=== PATIENT | female | born 1960 | race American Indian/Alaskan Native ===

== ENCOUNTER 2017-11-30 13:33 | Inpatient (IN) | payer OTHER ==
[2017-11-30] MEDS ORDERED: ZOFRAN ODT ONE (14:05)
[2017-11-30] MEDS ORDERED: ZOFRAN ODT PO ONE (14:07)
--- NOTE | 2017-11-30 14:07 | Emergency Department Report ---
ED Headache HPI - General Chief Complaint: Headache Stated Complaint: BLURRED VISION Time Seen by Provider: 11/30/17 13:59 Source: patient Exam Limitations: no limitations - History of Present Illness Initial Comments: 57 year old female presents to the Hospital complaining awaken up at 8 AM with a global sharp and dull headache. Pain is constant. Patient went to walk to the bathroom and felt like her gait was unsteady and she was falling to the right side. When she returned to the bed she started to have some to have some blurry vision nausea, and developed nausea and vomiting after drinking water. She denies history of migraine, neck pain, recent head injury. Pt with history of a " mild stroke" not taking any aspirin. Allergies/Adverse Reactions: Allergies No Known Allergies Allergy (Verified 11/30/17 13:37) ED Review of Systems ROS: Stated complaint: BLURRED VISION Other details as noted in HPI Comment: All other systems reviewed and negative ED Past Medical Hx - Past Medical History Hx CVA: Yes ("slight stroke") - Surgical History Past Surgical History?: No - Social History Smoking Status: Never Smoker Substance Use Type: None ED Physical Exam - General Limitations: No Limitations - Other Other exam information: General: No limitations, patient is alert in no acute distress Head exam: Atraumatic, normocephalic Eyes exam: Normal appearance ENT: Moist mucous membrane, normal oropharynx Neck exam: Normal inspection, full range of motion, no meningismus nontender Respiratory exam: Clear to auscultation bilateral, no wheezes, rales, crackles Cardiovascular: Normal rate and rhythm, normal heart sounds Abdomen: Soft, nondistended, and nontender, with normal bowel sounds, no rebound, or guarding Extremity: Full range of motion normal inspection no deformity Back: Normal Inspection, full range of motion, no tenderness Neurologic: Alert, oriented x3, cranial nerves intact, see NIH stroke scale. Psychiatric: normal affect, normal mood Skin: Warm, dry, intact ED Course Vital Signs 11/30/17 13:37 Temperature 97.4 F L Pulse Rate 85 Respiratory 16 Rate Blood Pressure 121/85 O2 Sat by Pulse 96 Oximetry ED Medical Decision Making - Lab Data Result diagrams: 11/30/17 14:21 11/30/17 14:21 Lab Results 11/30/17 11/30/17 11/30/17 Range/Units 14:21 14:21 14:21 WBC 6.0 (4.5-11.0) K/mm3 RBC 4.02 (3.65-5.03) M/mm3 Hgb 12.8 (10.1-14.3) gm/dl Hct 38.5 (30.3-42.9) % MCV 96 (79-97) fl MCH 32 (28-32) pg MCHC 33 (30-34) % RDW 13.5 (13.2-15.2) % Plt Count 354 (140-440) K/mm3 Lymph % (Auto) 23.7 (13.4-35.0) % [place] % (Auto) 4.2 (0.0-7.3) % Eos % (Auto) 0.4 (0.0-4.3) % Baso % (Auto) 0.4 (0.0-1.8) % Lymph # 1.4 (1.2-5.4) K/mm3 [place] # 0.3 (0.0-0.8) K/mm3 Eos # 0.0 (0.0-0.4) K/mm3 Baso # 0.0 (0.0-0.1) K/mm3 Seg Neutrophils % 71.3 H (40.0-70.0) % Seg Neutrophils # 4.3 (1.8-7.7) K/mm3 PT 12.6 (12.2-14.9) Sec. INR 0.90 (0.87-1.13) APTT 29.0 (24.2-36.6) Sec. Thrombin Time (15.1-19.6) Sec. Sodium 139 (137-145) mmol/L Potassium 3.7 (3.6-5.0) mmol/L Chloride 101.1 (98-107) mmol/L Carbon Dioxide 26 (22-30) mmol/L Anion Gap 16 mmol/L BUN 9 (7-17) mg/dL Creatinine 0.6 L (0.7-1.2) mg/dL Estimated GFR > 60 ml/min BUN/Creatinine Ratio 15 % Glucose 99 (65-100) mg/dL Calcium 8.9 (8.4-10.2) mg/dL Troponin T < 0.010 (0.00-0.029) ng/mL Urine Color (Yellow) Urine Turbidity (Clear) Urine pH (5.0-7.0) Ur Specific [place] (1.003-1.030) Urine Protein (Negative) mg/dL Urine Glucose (UA) (Negative) mg/dL Urine Ketones (Negative) mg/dL Urine Blood (Negative) Urine Nitrite (Negative) Urine Bilirubin (Negative) Urine Urobilinogen (<2.0) mg/dL Ur Leukocyte Esterase (Negative) Urine WBC (Auto) (0.0-6.0) /HPF Urine RBC (Auto) (0.0-6.0) /HPF U Epithel Cells (Auto) (0-13.0) /HPF Urine Bacteria (Auto) (Negative) /HPF Urine Mucus /HPF Urine Opiates Screen Urine Methadone Screen Ur Barbiturates Screen Ur Phencyclidine Scrn Ur Amphetamines Screen U Benzodiazepines Scrn Urine Cocaine Screen U Marijuana (THC) Screen Drugs of Abuse Note 11/30/17 11/30/17 11/30/17 Range/Units 14:21 14:28 14:28 WBC (4.5-11.0) K/mm3 RBC (3.65-5.03) M/mm3 Hgb (10.1-14.3) gm/dl Hct (30.3-42.9) % MCV (79-97) fl MCH (28-32) pg MCHC (30-34) % RDW (13.2-15.2) % Plt Count (140-440) K/mm3 Lymph % (Auto) (13.4-35.0) % [place] % (Auto) (0.0-7.3) % Eos % (Auto) (0.0-4.3) % Baso % (Auto) (0.0-1.8) % Lymph # (1.2-5.4) K/mm3 [place] # (0.0-0.8) K/mm3 Eos # (0.0-0.4) K/mm3 Baso # (0.0-0.1) K/mm3 Seg Neutrophils % (40.0-70.0) % Seg Neutrophils # (1.8-7.7) K/mm3 PT (12.2-14.9) Sec. INR (0.87-1.13) APTT (24.2-36.6) Sec. Thrombin Time 17.1 (15.1-19.6) Sec. Sodium (137-145) mmol/L Potassium (3.6-5.0) mmol/L Chloride (98-107) mmol/L Carbon Dioxide (22-30) mmol/L Anion Gap mmol/L BUN (7-17) mg/dL Creatinine (0.7-1.2) mg/dL Estimated GFR ml/min BUN/Creatinine Ratio % Glucose (65-100) mg/dL Calcium (8.4-10.2) mg/dL Troponin T (0.00-0.029) ng/mL Urine Color Yellow (Yellow) Urine Turbidity Clear (Clear) Urine pH 6.0 (5.0-7.0) Ur Specific [place] 1.019 (1.003-1.030) Urine Protein <15 mg/dl (Negative) mg/dL Urine Glucose (UA) Neg (Negative) mg/dL Urine Ketones 20 (Negative) mg/dL Urine Blood Sm (Negative) Urine Nitrite Neg (Negative) Urine Bilirubin Neg (Negative) Urine Urobilinogen < 2.0 (<2.0) mg/dL Ur Leukocyte Esterase Sm (Negative) Urine WBC (Auto) 5.0 (0.0-6.0) /HPF Urine RBC (Auto) 15.0 (0.0-6.0) /HPF U Epithel Cells (Auto) 5.0 (0-13.0) /HPF Urine Bacteria (Auto) 2+ (Negative) /HPF Urine Mucus 1+ /HPF Urine Opiates Screen Presumptive negative Urine Methadone Screen Presumptive negative Ur Barbiturates Screen Presumptive negative Ur Phencyclidine Scrn Presumptive negative Ur Amphetamines Screen Presumptive negative U Benzodiazepines Scrn Presumptive negative Urine Cocaine Screen Presumptive negative U Marijuana (THC) Screen Presumptive negative Drugs of Abuse Note Disclamer - EKG Data -: EKG Interpreted by Nm EKG shows normal: sinus rhythm, axis (qrs 44), QRS complexes (qrsd 84), ST-T waves (no stemi/t wave inv) Rate: normal - EKG Data When compared to previous EKG there are: no significant change (11/27/15) - Radiology Data Radiology results: report reviewed CT HEAD WITHOUT CONTRAST: HISTORY: Neurological deficit. TECHNIQUE: Sequential 2.5mm CT images. COMPARISON: none. FINDINGS: Cerebral Parenchyma: Within normal limits. Cerebellum: Within normal limits. Brainstem: Within normal limits. Ventricles: Normal. Sella: Normal. Extra-axial spaces: Normal. Basal Cisterns: Normal. Intracranial Hemorrhage: None. Midline Shift: None. Calvarium: Normal. Sinuses: Normal. Mastoid Air Cells: Normal. Visualized Orbits: Normal. IMPRESSION: Cranial CT scan within normal limits. - Medical Decision Making Patient presented with headache with left-sided numbness and complained of dizziness and unsteady gait. Patient has decreased sensation and a headache. Patient may have a complex migraine but denies history of headaches or migraine. CT head unremarkable. She'll be admitted to the hospital for further workup and evaluation. Aspirin given in the ED - Differential Diagnosis complex migraine, cva, vertigo Critical Care Time: No Critical care attestation.: If time is entered above; I have spent that time in minutes in the direct care of this critically ill patient, excluding procedure time. ED Disposition Clinical Impression: Headache, Left sided numbness Disposition: DC-01 TO HOME OR SELFCARE Is pt being admited?: Yes Condition: Stable Time of Disposition: 15:18 (Dr Silverio/hosp) - Assessment Assessment Interval: Baseline - Level of Consciousness 1a. Level of Consciousness: alert - LOC Questions 1b. LOC Questions: answers correctly - LOC Command 1c. LOC Commands: performs tasks correctly - Best Gaze 2. Best Gaze: normal - Visual 3. Visual: no visual loss - Facial Palsy 4. Facial Palsy: normal symmetrical movement - Motor Arm 5b. Motor Arm Right: no drift 5a. Motor Arm Left: no drift - Motor Leg 6a. Motor Leg Left: no drift 6b. Motor Leg Right: no drift - Limb Ataxia 7. Limb Ataxia: absent - Sensory 8. Sensory: mild/moderate sensory loss (left arm and left leg) - Best Language 9. Best Language: no aphasia - Dysarthria 10. Dysarthria: normal - Extinction and Inattention 11. Extinction/Inattention: no abnormality - Scoring Total Score: 1 Stroke Severity: Minor Stroke
--- NOTE | 2017-11-30 14:25 | Cat Scan Report ---
CT HEAD WITHOUT CONTRAST: HISTORY: Neurological deficit. TECHNIQUE: Sequential 2.5mm CT images. COMPARISON: none. FINDINGS: Cerebral Parenchyma: Within normal limits. Cerebellum: Within normal limits. Brainstem: Within normal limits. Ventricles: Normal. Sella: Normal. Extra-axial spaces: Normal. Basal Cisterns: Normal. Intracranial Hemorrhage: None. Midline Shift: None. Calvarium: Normal. Sinuses: Normal. Mastoid Air Cells: Normal. Visualized Orbits: Normal. IMPRESSION: Cranial CT scan within normal limits. These findings were discussed with Dr. busch in the emergency department at at 1418 hrs.
[2017-11-30 14:32] LABS: Basophils % (Auto) 0.4 % (0.0-1.8); Eosinophils % (Auto) 0.4 % (0.0-4.3); Hematocrit 38.5 % (30.3-42.9); Hemoglobin 12.8 gm/dl (10.1-14.3); Lymphocytes # (Auto) 1.4 K/mm3 (1.2-5.4); Lymphocytes % (Auto) 23.7 % (13.4-35.0); Mean Corpuscular HGB Conc 33 % (30-34); Mean Corpuscular Hemoglobin 32 pg (28-32); Mean Corpuscular Volume 96 fl (79-97); Monocytes # (Auto) 0.3 K/mm3 (0.0-0.8); Monocytes % (Auto) 4.2 % (0.0-7.3); Platelet Count 354 K/mm3 (140-440); Red Blood Count 4.02 M/mm3 (3.65-5.03); Red Cell Distribution Width 13.5 % (13.2-15.2)
[2017-11-30] MEDS ORDERED: TORADOL IV ONE (14:38)
[2017-11-30] MEDS ORDERED: REGLAN IV ONE (14:38)
[2017-11-30] MEDS ORDERED: BENADRYL IV ONE (14:38)
[2017-11-30] MEDS ORDERED: ASPIRIN PO ONE (14:39)
[2017-11-30 14:43] LABS: INR 0.9 (0.87-1.13)
[2017-11-30 14:46] LABS: BUN/Creatinine Ratio 15; Blood Urea Nitrogen 9 mg/dL (7-17); Calcium 8.9 mg/dL (8.4-10.2); Hemolysis Index 0
[2017-11-30 14:59] LABS: Bacteria,Urine 2+ /HPF (Negative); Bilirubin,Urine NEG (Negative); Blood,Urine SM (Negative); Color,Urine Yellow (Yellow); Mucus,Urine 1+ /HPF; Protein,Urine <15 mg/dL mg/dL (Negative); Urobilinogen,Urine < 2.0 mg/dL (<2.0)
[2017-11-30 15:04] LABS: Amphetamine Screen,Urine PRESUMPTIVE NEGATIVE; Benzodiazepines Screen,Urine PRESUMPTIVE NEGATIVE; Cannabinoid Screen,Urine PRESUMPTIVE NEGATIVE; Cocaine Screen,Urine PRESUMPTIVE NEGATIVE; Methadone Screen,Urine PRESUMPTIVE NEGATIVE; Opiate Screen,Urine PRESUMPTIVE NEGATIVE
[2017-11-30] MEDS ORDERED: ZOFRAN IV PRN (18:05)
[2017-11-30] MEDS ORDERED: PERCOCET 5/325 PO PRN (18:05)
[2017-11-30] MEDS ORDERED: TYLENOL PO PRN (18:05)
[2017-11-30] MEDS ORDERED: MORPHINE IV PRN (18:05)
[2017-11-30] MEDS ORDERED: AMBIEN PO PRN (18:05)
[2017-11-30] MEDS ORDERED: SODIUM CHLORIDE FLUSH SYRINGE 10 ML IV PRN ×2 (18:05→18:23)
--- NOTE | 2017-11-30 18:05 | History and Physical Report ---
History of Present Illness Date of examination: 11/30/17 Date of admission: 11/30/2017 Chief complaint: Chief complaint: Left-sided numbness since 8 AM History of present illness: History of Present Illness 57-year-old black female with history of cerebrovascular accident in the past which has resolved completely comes in for left-sided numbness from the face to the left upper extremity and left lower extremity. When she woke up at 8 AM she felt the left-sided numbness. The symptoms of an constant. No resolution R increase in the symptoms. Patient does not have any nasal regurgitation of fluids or facial weakness. Patient able to walk. No seizures. No recent hour. Past Medical History Hx CVA: Yes ("slight stroke") Surgical History Past Surgical History?: No Social History Smoking Status: Never Smoker Substance Use Type: None Family history Htn Review of Systems ROS: Stated complaint: BLURRED VISION Other details as noted in HPI Comment: All other systems reviewed and negative Medications and Allergies Allergies Allergy/AdvReac Type Severity Reaction Status Date / Time No Known Allergies Allergy Verified 11/30/17 13:37 Exam - Physical Exam Narrative exam: Lying in bed comfortably - Constitutional Vitals: Temp Pulse Resp BP Pulse Ox 97.4 F L 71 16 93/51 97 11/30/17 13:37 11/30/17 16:29 11/30/17 16:29 11/30/17 16:29 11/30/17 16:29 General appearance: Present: no acute distress, well-nourished - EENT Eyes: Present: PERRL ENT: hearing intact, clear oral mucosa - Neck Neck: Present: supple, normal ROM - Respiratory Respiratory effort: normal Respiratory: bilateral: CTA - Cardiovascular Heart rate: 78 Rhythm: regular Heart Sounds: Present: S1 & S2. Absent: rub, click - Extremities Extremities: no ischemia, pulses intact, pulses symmetrical, No edema Peripheral Pulses: within normal limits - Abdominal General gastrointestinal: Present: soft, non-tender, non-distended, normal bowel sounds Female genitourinary: Present: normal - Rectal Rectal Exam: deferred - Integumentary Integumentary: Present: clear, warm, dry - Musculoskeletal Musculoskeletal: strength equal bilaterally, other (normal COMPUTER PROJECT MANAGER exam: Per ED physician patient had decreased sensation in the left upper and left lower extremity) - Psychiatric Psychiatric: appropriate mood/affect, intact judgment & insight - Neurologic Neurologic: CNII-XII intact, moves all extremities - Allied Health Allied health notes reviewed: nursing Results - Labs CBC & Chem 7: 11/30/17 14:21 11/30/17 14:21 Labs: Laboratory Last Values WBC 6.0 K/mm3 (4.5-11.0) 11/30/17 14:21 RBC 4.02 M/mm3 (3.65-5.03) 11/30/17 14:21 Hgb 12.8 gm/dl (10.1-14.3) 11/30/17 14:21 Hct 38.5 % (30.3-42.9) 11/30/17 14:21 MCV 96 fl (79-97) 11/30/17 14:21 MCH 32 pg (28-32) 11/30/17 14:21 MCHC 33 % (30-34) 11/30/17 14:21 RDW 13.5 % (13.2-15.2) 11/30/17 14:21 Plt Count 354 K/mm3 (140-440) 11/30/17 14:21 Lymph % (Auto) 23.7 % (13.4-35.0) 11/30/17 14:21 [place] % (Auto) 4.2 % (0.0-7.3) 11/30/17 14:21 Eos % (Auto) 0.4 % (0.0-4.3) 11/30/17 14:21 Baso % (Auto) 0.4 % (0.0-1.8) 11/30/17 14:21 Lymph # 1.4 K/mm3 (1.2-5.4) 11/30/17 14:21 [place] # 0.3 K/mm3 (0.0-0.8) 11/30/17 14:21 Eos # 0.0 K/mm3 (0.0-0.4) 11/30/17 14:21 Baso # 0.0 K/mm3 (0.0-0.1) 11/30/17 14:21 Seg Neutrophils % 71.3 % (40.0-70.0) H 11/30/17 14:21 Seg Neutrophils # 4.3 K/mm3 (1.8-7.7) 11/30/17 14:21 PT 12.6 Sec. (12.2-14.9) 11/30/17 14:21 INR 0.90 (0.87-1.13) 11/30/17 14:21 APTT 29.0 Sec. (24.2-36.6) 11/30/17 14:21 Thrombin Time 17.1 Sec. (15.1-19.6) 11/30/17 14:21 Sodium 139 mmol/L (137-145) 11/30/17 14:21 Potassium 3.7 mmol/L (3.6-5.0) 11/30/17 14:21 Chloride 101.1 mmol/L (98-107) 11/30/17 14:21 Carbon Dioxide 26 mmol/L (22-30) 11/30/17 14:21 Anion Gap 16 mmol/L 11/30/17 14:21 BUN 9 mg/dL (7-17) 11/30/17 14:21 Creatinine 0.6 mg/dL (0.7-1.2) L 11/30/17 14:21 Estimated GFR > 60 ml/min 11/30/17 14:21 BUN/Creatinine Ratio 15 % 11/30/17 14:21 Glucose 99 mg/dL (65-100) 11/30/17 14:21 Calcium 8.9 mg/dL (8.4-10.2) 11/30/17 14:21 Troponin T < 0.010 ng/mL (0.00-0.029) 11/30/17 14:21 Urine Color Yellow (Yellow) 11/30/17 14:28 Urine Turbidity Clear (Clear) 11/30/17 14:28 Urine pH 6.0 (5.0-7.0) 11/30/17 14:28 Ur Specific [place] 1.019 (1.003-1.030) 11/30/17 14:28 Urine Protein <15 mg/dl mg/dL (Negative) 11/30/17 14:28 Urine Glucose (UA) Neg mg/dL (Negative) 11/30/17 14:28 Urine Ketones 20 mg/dL (Negative) 11/30/17 14:28 Urine Blood Sm (Negative) 11/30/17 14:28 Urine Nitrite Neg (Negative) 11/30/17 14:28 Urine Bilirubin Neg (Negative) 11/30/17 14:28 Urine Urobilinogen < 2.0 mg/dL (<2.0) 11/30/17 14:28 Ur Leukocyte Esterase Sm (Negative) 11/30/17 14:28 Urine WBC (Auto) 5.0 /HPF (0.0-6.0) 11/30/17 14:28 Urine RBC (Auto) 15.0 /HPF (0.0-6.0) 11/30/17 14:28 U Epithel Cells (Auto) 5.0 /HPF (0-13.0) 11/30/17 14:28 Urine Bacteria (Auto) 2+ /HPF (Negative) 11/30/17 14:28 Urine Mucus 1+ /HPF 11/30/17 14:28 Urine Opiates Screen Presumptive negative 11/30/17 14:28 Urine Methadone Screen Presumptive negative 11/30/17 14:28 Ur Barbiturates Screen Presumptive negative 11/30/17 14:28 Ur Phencyclidine Scrn Presumptive negative 11/30/17 14:28 Ur Amphetamines Screen Presumptive negative 11/30/17 14:28 U Benzodiazepines Scrn Presumptive negative 11/30/17 14:28 Urine Cocaine Screen Presumptive negative 11/30/17 14:28 U Marijuana (THC) Screen Presumptive negative 11/30/17 14:28 Drugs of Abuse Note Disclamer 11/30/17 14:28 Short CBC 11/30/17 Range/Units 14:21 WBC 6.0 (4.5-11.0) K/mm3 Hgb 12.8 (10.1-14.3) gm/dl Hct 38.5 (30.3-42.9) % Plt Count 354 (140-440) K/mm3 BMP 11/30/17 14:21 Sodium 139 Potassium 3.7 Chloride 101.1 Carbon Dioxide 26 BUN 9 Creatinine 0.6 L Glucose 99 Calcium 8.9 Cardiac Enzymes 11/30/17 Range/Units 14:21 Troponin T < 0.010 (0.00-0.029) ng/mL Urine 11/30/17 Range/Units 14:28 Urine Color Yellow (Yellow) Urine pH 6.0 (5.0-7.0) Ur Specific [place] 1.019 (1.003-1.030) Urine Protein <15 mg/dl (Negative) mg/dL Urine Glucose (UA) Neg (Negative) mg/dL - Imaging and Cardiology EKG: report reviewed (normal sinus rhythm) CT Scan - head: report reviewed (no acute findings) Assessment and Plan Advance Directives: Yes (full code) VTE prophylaxis?: Chemical Plan of care discussed with patient/family: Yes - Patient Problems (1) TIA (transient ischemic attack) Current Visit: Yes Status: Acute Qualifiers: Transient cerebral ischemia type: carotid artery syndrome (hemispheric) Qualified Code(s): G45.1 - Carotid artery syndrome (hemispheric) Plan to address problem: Patient is left-sided numbness TIA versus cerebrovascular accident Will get MRI/MRA echo and carotid duplex scan. Neurology consult Aspirin 81 mg once a day Plavix 75 mg once a day (2) DVT prophylaxis Current Visit: Yes Status: Acute Plan to address problem: On Lovenox 40 subcutaneous daily
[2017-11-30] MEDS ORDERED: NACL 0.9% 1000 ML 1,000 ML IV SCH (19:00)
[2017-11-30] MEDS ORDERED: PLAVIX PO ONE (19:25)
[2017-11-30] MEDS ORDERED: LOVENOX SUB-Q SCH (22:00)
[2017-12-01] MEDS: LOVENOX SUB-Q SCH ×2 (00:29→13:13)
[2017-12-01] MEDS: SODIUM CHLORIDE FLUSH SYRINGE 10 ML IV SCH ×2 (00:30→10:18)
[2017-12-01] MEDS ORDERED: PLAVIX PO NR (01:00)
[2017-12-01] MEDS ORDERED: FIORICET PO NR (04:43)
[2017-12-01 05:43] LABS: Basophils % (Auto) 0.2 % (0.0-1.8); Eosinophils # (Auto) 0.1 K/mm3 (0.0-0.4); Eosinophils % (Auto) 1.6 % (0.0-4.3); Hematocrit 33.9 % (30.3-42.9); Hemoglobin 11.4 gm/dl (10.1-14.3); Lymphocytes # (Auto) 2.8 K/mm3 (1.2-5.4); Lymphocytes % (Auto) 47.8 % (13.4-35.0); Mean Corpuscular HGB Conc 34 % (30-34); Mean Corpuscular Hemoglobin 33 pg (28-32); Mean Corpuscular Volume 97 fl (79-97); Monocytes # (Auto) 0.3 K/mm3 (0.0-0.8); Monocytes % (Auto) 5.2 % (0.0-7.3); Platelet Count 304 K/mm3 (140-440); Red Cell Distribution Width 13.7 % (13.2-15.2)
[2017-12-01 06:08] LABS: Albumin 3.4 g/dL (3.9-5); BUN/Creatinine Ratio 16; Blood Urea Nitrogen 11 mg/dL (7-17); Calcium 8.4 mg/dL (8.4-10.2); Chol/HDL Ratio 2.87 %; HDL Cholesterol 40 mg/dL (40-59); Hemolysis Index 155; LDL Cholesterol,Direct 64 mg/dL (50-130)
[2017-12-01 06:30] LABS: Alanine Aminotransferase 11 units/L (7-56)
[2017-12-01] MEDS ORDERED: LEVAQUIN PO SCH (11:00)
--- NOTE | 2017-12-01 13:18 | Discharge Summary ---
Providers - Providers Date of Admission: 11/30/17 18:05 Date of discharge: 12/01/17 Attending physician: ELMER PEREZ 11/30/17 18:05 Consult to Physician [CONS] Routine Comment: Consulting Provider: THANH GIBBONS Physician Instructions: Reason For Exam: TIA 11/30/17 18:23 Occupational Therapy Evaluate and Treat [CONS] Routine Comment: Reason For Exam: Neuro deficits Physical Therapy Evaluation and Treat [CONS] Routine Comment: Reason For Exam: Neuro deficits Primary care physician: LIVING SUPERVISOR Hospitalization Condition: Stable Hospital course: Ms. Leon is a 57 yo woman with a history of TIAs who presents with dizziness with head movements, seeing spots. She was admitted for TIA r/o CVA. CT head unremarkable. -Dizziness, most likely Migraine related, give NSAID x 1, home with narcotics -H/o TIA, not this time. -UTI MRI, MRA negative for strokes Carotid doppler unremarkable for significant stenosis. Disposition: DC-01 TO HOME OR SELFCARE Time spent for discharge: 31 min Core Measure Documentation - Palliative Care Palliative Care/ Comfort Measures: Not Applicable - Core Measures Any of the following diagnoses?: none - VTE Discharge Requirements Deep Vein Thrombosis/Pulmonary Embolism Present on Admission: No Has pt received <5 days of overlap therapy or INR<2.0: No Anticoagulant overlap therapy prescribed at discharge: No Contraindication No Overlap Therapy order at DC: Not Indicated Exam - Physical Exam Narrative exam: GEN: WDWN, NAD, Awake, Alert, Orientated x 3 HEENT: NCAT, EOMI, PERRL, OP Clear NECK: supple, no adenopathy, no thyromegaly, no JVD CVS/HEART: RRR, normal S1S2, pulses present bilaterally CHEST/LUNGS: CTA B, Symmetrical chest expansion, good air entry bilaterally GI/Abdomen: soft, NTND, good bowel sounds, no guarding or rebound /Bladder: no suprapubic tenderness, no CVA or paraspinal tenderness EXT/Skin: no c/c/e, no obvious rash MSK: FROM x 4 Neuro: CN 2-12 grossly intact, no focal deficits, no nystagmus Psych: calm - Constitutional Vitals: Temp Pulse Resp BP Pulse Ox 98.2 F 54 L 18 118/75 96 12/01/17 06:14 12/01/17 06:14 12/01/17 06:14 12/01/17 06:14 12/01/17 06:14 Plan Activity: no driving until cleared by PCP, other (no strenous activities) Diet: regular Additional Instructions: if you do not have a PCP then call [facility] at [phone] and ask for the first available appointment. Also, asked you PCP to obtain urine culture results from Here Follow up with: PRIMARY MD ROMERO [Primary Care Provider] - 3-5 Days THANH GIBBONS MD [Staff Physician] - 7 Days Prescriptions: AtorvaSTATin [Lipitor] 20 mg PO QHS #30 tab Aspirin [Aspirin EC] 81 mg PO DAILY #30 tablet. HYDROcodone/APAP 5-325 [[place] 5/325] 1 each PO Q4HR PRN #10 tablet PRN Reason: Headache Levofloxacin [Levaquin TAB] 500 mg PO Q24HR #6 tablet Ondansetron [Zofran Odt] 4 mg PO Q4H PRN 3 Days tab.rapdis PRN Reason: Nausea Pantoprazole [Protonix TAB] 20 mg PO DAILY 3 Days tablet.
[2017-12-01 13:22] VITALS: BP 131/77
--- NOTE | 2017-12-01 13:41 | Magnetic Resonance Report ---
FINAL REPORT EXAM: MR BRAIN WO CON HISTORY: stroke TECHNIQUE: Multiplanar multisequence brain MR imaging without IV contrast. PRIORS: None. FINDINGS: The included air filled sinuses contain no acute fluid level. Small scattered foci of FLAIR and T2 hyperintensity in the cerebral white matter, while nonspecific, are present and usually attributed to chronic ischemic gliosis. It can occur secondary to the normal aging process, hypertension, vasculitis, migraine related changes, or arterial sclerotic vascular disease. The differential includes demyelination in the appropriate clinical setting. Sulci and ventricles are age-appropriate. The brain is without mass, mass effect, hemorrhage, or acute infarct. There are no areas of brain restricted diffusion to suggest an acute ischemic infarct. There is no midline shift or brain edema. IMPRESSION: No acute CVA or brain mass Small scattered foci of white matter FLAIR hyperintensities usually reflect chronic ischemic gliosis. See differential above
--- NOTE | 2017-12-01 13:46 | Magnetic Resonance Report ---
FINAL REPORT EXAM: MR MRA HEAD WO CON HISTORY: stroke TECHNIQUE: Multiplanar multisequence brain arterial vascular MRA imaging 3-D image postprocessing. PRIORS: MRI brain 12/01/2017 FINDINGS: Internal carotid arteries: Normal left side. Slight signal irregularity and minimal narrowing in the distal right ICA may be artifact or reflect slight atherosclerotic change. Less than 50 % stenosis. Anterior cerebral arteries: Normal. Middle cerebral arteries: Normal. Vertebral arteries: Normal. Basilar artery: Normal. Posterior cerebral arteries: No definite abnormality. Developmental variation with persistent circulation of left CLEANER. Occlusion: None. Vascular malformations: None. Aneurysm: None. IMPRESSION: No evidence of aneurysm or occlusion Slight irregularity in the distal right ICA may be artifact or reflect slight atherosclerotic change. Less than 50 % stenosis.
[2017-12-01] MEDS ORDERED: NORCO 10/325 PO PRN (13:59)
--- NOTE | 2017-12-01 14:52 | Consultation ---
History of Present Illness Consult date: 12/01/17 History of present illness: patient is seen and it is OK to be discharged home the MRI shows only minimal changes a/w migraine ad the MRA is normal suspect this is migraine and not stroke or TIA will follow up in the office may go home Thanks Medications and Allergies Allergies Allergy/AdvReac Type Severity Reaction Status Date / Time codeine Allergy Angioedema Verified 12/01/17 04:23 Home Medications Medication Instructions Recorded Confirmed Last Taken Type Acetaminophen [Acetaminophen TAB] 325 mg PO Q4H PRN #30 tablet 12/01/17 Unknown Rx Aspirin [Aspirin EC] 81 mg PO DAILY #30 tablet. 12/01/17 Unknown Rx AtorvaSTATin [Lipitor] 20 mg PO QHS #30 tab 12/01/17 Unknown Rx HYDROcodone/APAP 5-325 [[place] 1 each PO Q4HR PRN #10 tablet 12/01/17 Unknown Rx 5/325] Levofloxacin [Levaquin TAB] 500 mg PO Q24HR #6 tablet 12/01/17 Unknown Rx Lisinopril 12/01/17 Unknown History Ondansetron [Zofran Odt] 4 mg PO Q4H PRN 3 Days tab.rapdis 12/01/17 Unknown Rx Pantoprazole [Protonix TAB] 20 mg PO DAILY 3 Days tablet. 12/01/17 Unknown Rx Active Meds: Active Medications Acetaminophen (Tylenol) 650 mg PO Q4H PRN PRN Reason: Pain MILD(1-3)/Fever >100.5/MCKEON Last Admin: 12/01/17 14:22 Dose: 650 mg Acetaminophen/Hydrocodone Bitart ([place] 10/325) 1 each PO Q4H PRN PRN Reason: Pain, Moderate (4-6) Atorvastatin Calcium (Lipitor) 40 mg PO QHS CAMERON Last Admin: 12/01/17 00:29 Dose: 40 mg Sodium Chloride (Nacl 0.9% 1000 Ml) 1,000 mls @ 75 mls/hr IV DIRECT CAMERON Last Admin: 12/01/17 05:00 Dose: 75 mls/hr Levofloxacin (Levaquin) 500 mg PO Q24HR CAMERON Last Admin: 12/01/17 13:16 Dose: 500 mg Naproxen (Naprosyn) 500 mg PO ONCE ONE Stop: 12/01/17 15:01 Ondansetron HCl (Zofran) 4 mg IV Q8H PRN PRN Reason: Nausea And Vomiting Sodium Chloride (Sodium Chloride Flush Syringe 10 Ml) 10 ml IV BID CAMERON Last Admin: 12/01/17 10:18 Dose: 10 ml Sodium Chloride (Sodium Chloride Flush Syringe 10 Ml) 10 ml IV PRN PRN PRN Reason: LINE FLUSH Zolpidem Tartrate (Ambien) 5 mg PO QHS PRN PRN Reason: Insomnia Physical Examination - Vital Signs Vital Signs: Vital Signs Temp Pulse Resp BP Pulse Ox 97.4 F L 85 16 121/85 96 11/30/17 13:37 11/30/17 13:37 11/30/17 13:37 11/30/17 13:37 11/30/17 13:37 - Assessment Assessment Interval: Baseline - Level of Consciousness 1a. Level of Consciousness: alert - LOC Questions 1b. LOC Questions: answers correctly - LOC Command 1c. LOC Commands: performs tasks correctly - Best Gaze 2. Best Gaze: normal - Visual 3. Visual: no visual loss - Facial Palsy 4. Facial Palsy: normal symmetrical movement - Motor Arm 5b. Motor Arm Right: no drift - Motor Leg 6a. Motor Leg Left: no drift - Limb Ataxia 7. Limb Ataxia: absent - Sensory 8. Sensory: mild/moderate sensory loss (left arm and left leg) - Best Language 9. Best Language: no aphasia - Dysarthria 10. Dysarthria: normal - Extinction and Inattention 11. Extinction/Inattention: no abnormality Results - Laboratory Findings CBC and BMP: 12/01/17 04:32 12/01/17 04:32 Abnormal Lab Findings: Abnormal Labs 11/30/17 11/30/17 12/01/17 14:21 14:21 04:32 RBC 3.50 L MCH 33 H Lymph % (Auto) 47.8 H Seg Neutrophils % 71.3 H Creatinine 0.6 L Total Protein Albumin 12/01/17 04:32 RBC MCH Lymph % (Auto) Seg Neutrophils % Creatinine Total Protein 6.1 L Albumin 3.4 L
[2017-12-01] MEDS ORDERED: NAPROSYN PO ONE (15:00)
--- NOTE | 2017-12-02 12:51 | Consultation ---
HISTORY OF PRESENT ILLNESS: This patient initially admitted to the Emergency Room of [facility], had been admitted because of new onset of severe headaches, dizziness, loss of balance; on speaking with Dr. Rojas, the patient's condition has subsequently stabilized with subsequent to her admission. She has had neuro imaging studies including MRI/MRA. I have reviewed over her magnetic resonance arterial scan MRA, which is negative. I have reviewed over her MRI scan of the brain, which shows a very minimal white matter changes present posteriorly with very minimal lacunar changes within the white matter, referred to as the microvascular white matter changes, which are typical of migraine and also age related. I have reviewed over her labs which consists of having a normal white count of 6000 and hematocrit of 38.5. The patient's creatinine is 0.6, potassium is 3.7, but has been corrected since admission to 4.6. Her albumin is 3.4. Since admission, the patient's condition has improved. She does not have severe headache. She has no nausea and vomiting, but slight dizziness when she attempted to stand. Initial presenting symptoms were that of dizziness and incoordination. PHYSICAL EXAMINATION: At this point, shows: VITAL SIGNS: Blood pressure to be 120/70, pulse rate is 80, respirations 18, pulse rate is 60, and temperature is 99.1. NEUROLOGIC: Cranial nerves 2-12 are intact. Full ocular movements. Symmetrical face. Movement is present. Hearing is intact. Speech is clear. Affect appropriate. Neck is supple. Mac Developer strength equal. Motor tone is symmetrical. No reflex abnormalities present. Full ocular movements present. No tremors or asterixis. IMPRESSION: Prolonged migraine with vertigo, nausea, headache. I agree with Dr. Rojas, the patient may be discharged home at this point. We would recommend Topamax, magnesium. I will follow up in the office. Thank you very much. JOB# [id number] AKOSUA/NTS
== END 2017-12-01 18:05 | disposition home or self-care (01) | DRG 103 ==
LOC: ED 13:33 → 3A 18:05
PROVIDERS: ADMIT Internal Medicine; ATTEND Internal Medicine
DX: G43.909 Migraine, unspecified, not intractable, without status migrainosus (principal); N39.0 Urinary tract infection, site not specified; Z82.49 Family history of ischemic heart disease and other diseases of the circulatory system; Z88.6 Allergy status to analgesic agent
CPT/HCPCS: 36415; 70450; 70544; 70551; 80048; 80053; 80061; 80307; 81001; 83036; 84484; 85025; 85610; 85670; 85730; 87086; 93005; 93010; 93880; 96374; 96375; A9270-GY; J1200; J1650; J2765; J7030; Q0162

== ENCOUNTER 2017-12-03 15:32 | Emergency (ER) | payer SELFPAY ==
[2017-12-03 16:26] VITALS: BP 113/66
--- NOTE | 2017-12-03 16:50 | Emergency Department Report ---
ED General Adult HPI - General Chief complaint: Headache Stated complaint: HIGH BLOOD PRESSURE Time Seen by Provider: 12/03/17 16:37 Source: patient Mode of arrival: Ambulatory Limitations: No Limitations - History of Present Illness Initial comments: Patient is a 57-year-old Female who was admitted several days ago for headache with numbness. Patient had MRI to rule out CVA. Patient states that she also was started on Levaquin for urinary tract infection. Patient states this medication is causing her nausea make her feel worse. Patient's continued to have a headache also and does have an appointment for next week with a neurologist. Patient states headache is pounding and 6 out of 10 in severity. Patient states when she takes Levaquin she gets very nauseous with is no abdominal pain diarrhea at this time. Patient also denies any neck stiffness fevers chills. - Related Data Home Medications Medication Instructions Recorded Confirmed Last Taken Lisinopril 12/01/17 Unknown Previous Rx's Medication Instructions Recorded Last Taken Type Acetaminophen [Acetaminophen TAB] 325 mg PO Q4H PRN #30 tablet 12/01/17 Unknown Rx Aspirin [Aspirin EC] 81 mg PO DAILY #30 tablet. 12/01/17 Unknown Rx AtorvaSTATin [Lipitor] 20 mg PO QHS #30 tab 12/01/17 Unknown Rx HYDROcodone/APAP 5-325 [[place] 1 each PO Q4HR PRN #10 tablet 12/01/17 Unknown Rx 5/325] Levofloxacin [Levaquin TAB] 500 mg PO Q24HR #6 tablet 12/01/17 Unknown Rx Ondansetron [Zofran Odt] 4 mg PO Q4H PRN 3 Days tab.rapdis 12/01/17 Unknown Rx Pantoprazole [Protonix TAB] 20 mg PO DAILY 3 Days tablet. 12/01/17 Unknown Rx Ketorolac [Toradol] 10 mg PO Q6H PRN #12 tablet 12/03/17 Unknown Rx Nitrofurantoin Monohyd/M-Cryst 100 mg PO BID #10 capsule 12/03/17 Unknown Rx [Macrobid 100 mg Capsule] Allergies Allergy/AdvReac Type Severity Reaction Status Date / Time codeine Allergy Angioedema Verified 12/01/17 04:23 ED Review of Systems ROS: Stated complaint: HIGH BLOOD PRESSURE Other details as noted in HPI Comment: All other systems reviewed and negative ED Past Medical Hx - Past Medical History Hx Hypertension: Yes Hx CVA: Yes ("slight stroke") Hx Diabetes: No Hx Asthma: Yes Hx COPD: No - Surgical History Additional Surgical History: tubal ligation - Social History Smoking Status: Former Smoker Substance Use Type: None - Medications Home Medications: Home Medications Medication Instructions Recorded Confirmed Last Taken Type Acetaminophen [Acetaminophen TAB] 325 mg PO Q4H PRN #30 tablet 12/01/17 Unknown Rx Aspirin [Aspirin EC] 81 mg PO DAILY #30 tablet. 12/01/17 Unknown Rx AtorvaSTATin [Lipitor] 20 mg PO QHS #30 tab 12/01/17 Unknown Rx HYDROcodone/APAP 5-325 [[place] 1 each PO Q4HR PRN #10 tablet 12/01/17 Unknown Rx 5/325] Levofloxacin [Levaquin TAB] 500 mg PO Q24HR #6 tablet 12/01/17 Unknown Rx Lisinopril 12/01/17 Unknown History Ondansetron [Zofran Odt] 4 mg PO Q4H PRN 3 Days tab.rapdis 12/01/17 Unknown Rx Pantoprazole [Protonix TAB] 20 mg PO DAILY 3 Days tablet. 12/01/17 Unknown Rx Ketorolac [Toradol] 10 mg PO Q6H PRN #12 tablet 12/03/17 Unknown Rx Nitrofurantoin Monohyd/M-Cryst 100 mg PO BID #10 capsule 12/03/17 Unknown Rx [Macrobid 100 mg Capsule] ED Physical Exam - General Limitations: No Limitations General appearance: alert, in no apparent distress - Head Head exam: Present: atraumatic, normocephalic - Eye Eye exam: Present: normal appearance - ENT ENT exam: Present: mucous membranes moist - Neck Neck exam: Present: normal inspection - Respiratory Respiratory exam: Present: normal lung sounds bilaterally. Absent: respiratory distress, wheezes, rales - Cardiovascular Cardiovascular Exam: Present: regular rate, normal rhythm. Absent: systolic murmur, diastolic murmur, rubs, gallop - GI/Abdominal GI/Abdominal exam: Present: soft, normal bowel sounds. Absent: distended, tenderness, guarding, rebound, rigid - Extremities Exam Extremities exam: Present: normal inspection - Back Exam Back exam: Present: normal inspection - Neurological Exam Neurological exam: Present: alert, oriented X3 - Psychiatric Psychiatric exam: Present: normal affect, normal mood - Skin Skin exam: Present: warm, dry, intact, normal color. Absent: rash ED Course Vital Signs 12/03/17 12/03/17 15:43 16:25 Temperature 98.5 F Pulse Rate 83 73 Respiratory 19 18 Rate Blood Pressure 137/79 Blood Pressure 113/66 [Right] O2 Sat by Pulse 95 99 Oximetry ED Medical Decision Making - Medical Decision Making Did review the patient's history and physical from her last visit as well as all laboratory studies and consults. Patient does have a very mild urinary tract infection and also states that she does have some symptoms of urinary frequency. Patient will be changed from Levaquin to Macrobid. Patient also started on Toradol for her headache. Patient be discharged home. Critical care attestation.: If time is entered above; I have spent that time in minutes in the direct care of this critically ill patient, excluding procedure time. ED Disposition Clinical Impression: Headache Qualifiers: Headache type: unspecified Headache chronicity pattern: acute headache Intractability: not intractable Qualified Code(s): R51 - Headache UTI (urinary tract infection) Qualifiers: Urinary tract infection type: acute cystitis Hematuria presence: without hematuria Qualified Code(s): N30.00 - Acute cystitis without hematuria Disposition: - TO HOME OR SELFCARE Is pt being admited?: No Does the pt Need Aspirin: No Condition: Stable Instructions: Urinary Tract Infection in Women (ED) Prescriptions: Ketorolac [Toradol] 10 mg PO Q6H PRN #12 tablet PRN Reason: Pain Nitrofurantoin Monohyd/M-Cryst [Macrobid 100 mg Capsule] 100 mg PO BID #10 capsule Referrals: PRIMARY CARE, [Primary Care Provider] - 3-5 Days
== END 2017-12-03 17:26 | disposition home or self-care (01) ==
LOC: ED 15:32
DX: N30.00 Acute cystitis without hematuria (principal); R51 Headache; J45.909 Unspecified asthma, uncomplicated; I10 Essential (primary) hypertension; I63.9 Cerebral infarction, unspecified; Z98.51 Tubal ligation status; Z87.891 Personal history of nicotine dependence; Z88.4 Allergy status to anesthetic agent
CPT/HCPCS: 99282